=== PATIENT | female | born 1975 | race Two or more races ===

== ENCOUNTER 2019-03-09 07:59 | Outpatient (CLI) | payer OTHER | END 2019-03-09 08:03 | disposition home or self-care (01) | LOC: MAMO-SONO 07:59 | DX: N60.19 Diffuse cystic mastopathy of unspecified breast (principal); Z12.31 Encounter for screening mammogram for malignant neoplasm of breast; Z98.82 Breast implant status; N60.99 Unspecified benign mammary dysplasia of unspecified breast ==

== ENCOUNTER 2020-04-03 08:01 | Outpatient (CLI) | payer OTHER | END 2020-04-03 08:26 | disposition home or self-care (01) | LOC: MAMO-SONO 08:01 | DX: Z12.31 Encounter for screening mammogram for malignant neoplasm of breast (principal); Z87.898 Personal history of other specified conditions; N63.41 Unspecified lump in right breast, subareolar; Z98.82 Breast implant status ==

== ENCOUNTER 2021-05-11 09:59 | Outpatient (CLI) | payer OTHER | END 2021-05-11 10:16 | disposition home or self-care (01) | LOC: MAMO-SONO 09:59 | PROVIDERS: ATTEND Obstetrics & Gynecology | DX: N60.21 Fibroadenosis of right breast (principal); N60.22 Fibroadenosis of left breast ==